=== PATIENT | female | born 1940 ===

== ENCOUNTER 2022-07-10 13:14 | Inpatient (IN) | payer MEDICARE, BC ==
[~2022-07-10] VITALS: Ht 162.6 cm; Wt 63.5 kg
--- NOTE | 2022-07-10 13:18 | NUR ---
ASSUME CARE IN ED VIA RESCUE FROM [facility] FOR Marco ASHLEY 9741.
[2022-07-10] MEDS ORDERED: NIFE-34 PO (14:41)
[2022-07-10] MEDS ORDERED: LOSA100T31 PO (14:41)
[2022-07-10] MEDS ORDERED: CEFTIN PO (14:42)
[2022-07-10] MEDS ORDERED: CHOL500062 PO (14:42)
[2022-07-10] MEDS ORDERED: DIAZ5TAB PO (14:42)
[2022-07-10 15:30] LABS: ETHANOL < 3 MG/DL (0-0)
[2022-07-10 15:31] LABS: HEMATOCRIT 43.2 % (31.2-41.9); MEAN CORPUSCULAR VOLUME 87.3 fL (75.5-95.3); PLATELET COUNT (AUTO) 282 K/uL (179-408)
[2022-07-10 15:32] LABS: POTASSIUM 3.5 mmol/L (3.5-5.1)
[2022-07-10 15:36] LABS: ACETAMINOPHEN < 2.0 ug/mL (10-30)
[2022-07-10 15:37] LABS: BILIRUBIN,TOTAL 0.5 mg/dL (0.2-1.0); TOTAL PROTEIN, SERUM 7.5 g/dL (6.4-8.2)
[2022-07-10 15:39] LABS: THYROID STIMULATING HORMONE 0.969 mIU/mL (0.358-3.740)
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
[2022-07-10] MEDS ORDERED: MAGNESIUM HYDROXIDE 30 ML LIQUID UDC PO PRN (18:30)
[2022-07-10] MEDS ORDERED: ACETAMINOPHEN 325 MG TABLET PO PRN (18:30)
[2022-07-10] MEDS ORDERED: BLOOD SUGAR DIAGNOSTIC 1 EACH STRIP VI ONE (18:30)
[2022-07-10] MEDS ORDERED: MAG HYDROX/AL HYDROX/SIMETH 30 ML LIQUID UDC PO PRN (18:30)
[2022-07-10] MEDS ORDERED: LORAZEPAM 0.5 MG TABLET PO PRN (18:30)
[2022-07-10 19:05] VITALS: BP 154/81
[2022-07-10 20:14] VITALS: BP 149/71
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
[2022-07-11 07:38] VITALS: BP 146/72
[2022-07-11] MEDS ORDERED: DONE5TAB34 PO (12:45)
--- NOTE | 2022-07-11 12:46 | NUR ---
notified Dr. Diallo patient's 72 hrs hold at 2330 pm today.
--- NOTE | 2022-07-11 15:52 | NUR ---
patient is alert and oriented x3 verbalize needs know, patient don't believe she belong here ,asked came to picking table worker her valuable belonging and want to go home with . patient offered $100 for nurse to release her.explain patient about 72 hrs and have to waiting for psychiatrist evaluation .will continue close monitoring.
[2022-07-11 16:07] VITALS: BP 128/69
[2022-07-11] MEDS ORDERED: busPIRone 5 MG TABLET PO ONE (18:15)
[2022-07-11 19:46] VITALS: BP 137/73
[2022-07-11] MEDS: DONEPEZIL 5 MG TABLET PO SCH (20:22)
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
[2022-07-12 07:38] VITALS: BP 148/66
[2022-07-12] MEDS: busPIRone 5 MG TABLET PO SCH ×2 (08:28→16:34)
[2022-07-12] MEDS: CHOLECALCIFEROL 1,000 UNIT TABLET PO SCH (08:29)
[2022-07-12] MEDS: LOSARTAN POTASSIUM 50 MG TABLET PO SCH (08:29)
[2022-07-12 11:28] LABS: *BILIRUBIN,URIN NEGATIVE (NEGATIVE); *BLOOD, URINE NEGATIVE (NEGATIVE); *CLARITY,URINE CLEAR (CLEAR); *COLOR,URINE YELLOW (YELLOW); *KETONES,URINE NEGATIVE (NEGATIVE); *UROBILINOGEN,URINE 0.2 E.U./dl (NORMAL); LEUKOCYTE ESTERASE ,URINE 1+ (NEGATIVE); NITRITE, URINE NEGATIVE (NEGATIVE); PH,URINE 5.5 (5.0-8.0); UGLUCOSE NEGATIVE (NEGATIVE)
[2022-07-12 11:39] LABS: *AMPHETAMINE, URINE NEGATIVE (NEGATIVE); *CANNABINOID, URINE NEGATIVE (NEGATIVE); *COCCAINE, URINE NEGATIVE (NEGATIVE); *OPIATE, URINE NEGATIVE (NEGATIVE); *PHENCYCLIDINE SCREEN,URINE NEGATIVE (NEGATIVE)
[2022-07-12 11:41] LABS: BACTERIA,URINE FEW /HPF (NONE SEEN); RBC,URINE NONE SEEN /HPF (0-3); SQUAMOUS EPITHELIAL CELL,UR FEW /HPF (NONE SEEN)
--- NOTE | 2022-07-12 11:47 | NUR ---
LOVELY Family Contact: Pt currently resides at home with her , Rafi ([phone]) located at [address] [place] [address] ([phone]). Rafi stated to SW that the pt does not have a DPOA or conservator. LOVELY will continue to speak with Rafi to confirm a discharge plan for the pt prior to discharge.
[2022-07-12] MEDS: DIVALPROEX SPRINKLE 125 MG CAP.SPRINK PO SCH ×2 (12:08→20:23)
[2022-07-12] MEDS: CEphaleXIN 500 MG CAPSULE PO SCH ×2 (12:36→21:07)
[2022-07-12] MEDS: NIFEdipine XL 60 MG TABSR PO SCH (14:00)
--- NOTE | 2022-07-12 15:56 | NUR ---
LOVELY Initial Discharge Note: Pt currently resides at home with her , Rafi ([phone]) located at [address] [place] [address] ([phone]). Pt stated she would like to return home. Rafi stated to SW that the pt does not have a DPOA or conservator. LOVELY will continue to work with pt, family and MD to ensure a safe and proper discharge plan.
--- NOTE | 2022-07-12 15:58 | NUR ---
Firearms Report: Test Fixture Assembler completed and submitted a [employer] firearms report for 5150 a danger to others. A copy of report has been placed in patient chart.
[2022-07-12 16:08] VITALS: BP 131/96
--- NOTE | 2022-07-12 17:21 | NUR ---
UA sent to lab ,patient started antibiotic for UTI well tolerated.
[2022-07-12 19:51] VITALS: BP 142/82
[2022-07-12] MEDS: DONEPEZIL 5 MG TABLET PO SCH (20:23)
[2022-07-13 08:51] VITALS: BP 170/74
[2022-07-13] MEDS: CEphaleXIN 500 MG CAPSULE PO SCH ×2 (08:51→16:56)
[2022-07-13] MEDS: busPIRone 5 MG TABLET PO SCH ×3 (08:51→20:33)
[2022-07-13] MEDS: DIVALPROEX SPRINKLE 125 MG CAP.SPRINK PO SCH ×3 (08:51→20:33)
[2022-07-13] MEDS: LOSARTAN POTASSIUM 50 MG TABLET PO SCH (08:51)
[2022-07-13] MEDS: NIFEdipine XL 60 MG TABSR PO SCH (08:52)
[2022-07-13] MEDS: CHOLECALCIFEROL 1,000 UNIT TABLET PO SCH (08:52)
--- NOTE | 2022-07-13 11:42 | NUR ---
LOVELY Family Contact: SW returned pt's , Rafi ([phone]) call and was not able to leave a voicemail for a call back to discuss pt's discharge plan. LOVELY discussed update with Psychiatrist, Dr. Diallo.
--- NOTE | 2022-07-13 16:35 | NUR ---
GPS: PT ALERT AND ORIENTED X3. PT IS CALM AND APPROACHABLE. DENIES PAIN OR DISCOMFORT. PT COMPLIANT TO CARE AND MEDS. NO EPISODE OF AGITATION AT THIS TIME. SEEN ATTENDING WITH GROUP THERAPY. DENIES SI/HI. PT SAFETY AND FALL PRECAUTIONS ARE IN PLACE.
[2022-07-13 17:02] VITALS: BP 101/50
[2022-07-13 20:00] VITALS: BP 101/52
[2022-07-13] MEDS: DONEPEZIL 5 MG TABLET PO SCH (20:33)
--- NOTE | 2022-07-14 05:22 | NUR ---
GPS: Nursing Notes: Dementia. Verbally contracted for safety. Patient still continues to be delusional with paranoid tendencies. Is disheveled, has visual hallucinations, wanders hallway. No aggressive behavior this shift. Patient tremaine SI. Patient taking Kephlex r/t UTI. Is med compliant. Will continue to monitor for safety further hallucinations.
[2022-07-14 07:30] VITALS: BP 113/61
[2022-07-14] MEDS: CHOLECALCIFEROL 1,000 UNIT TABLET PO SCH (09:44)
[2022-07-14] MEDS: LOSARTAN POTASSIUM 50 MG TABLET PO SCH (09:44)
[2022-07-14] MEDS: DIVALPROEX SPRINKLE 125 MG CAP.SPRINK PO SCH ×3 (09:44→20:15)
[2022-07-14] MEDS: busPIRone 5 MG TABLET PO SCH ×3 (09:44→20:15)
[2022-07-14] MEDS: CEphaleXIN 500 MG CAPSULE PO SCH ×2 (09:44→17:44)
[2022-07-14] MEDS: NIFEdipine XL 60 MG TABSR PO SCH (09:45)
--- NOTE | 2022-07-14 10:33 | NUR ---
LOVELY Family Contact: SW contacted pt's , Rafi ([phone]) and was not able to get connected or leave a voicemail. pt stated she also has a daughter. SW was unable to locate daughter's number in patient's chart.
--- NOTE | 2022-07-14 10:35 | NUR ---
GPS: PT ALERT/ORIENTED X3. COMPLIANT WITH CARE AND MEDS. NO AGITATION NOTED. PT PARTICIPATES WITH GROUP ACTIVITIES. PT ATTENDED THE [facility] HEARING AND THE PROBABLE CAUSE REMAINED TO BE DANGER TO OTHERS. PT DID NOT CONTEST TO THE REFEREE.
[2022-07-14 17:11] VITALS: BP 135/53
[2022-07-14 19:50] VITALS: BP 110/63
[2022-07-14] MEDS: DONEPEZIL 5 MG TABLET PO SCH (20:15)
[2022-07-15 07:30] VITALS: BP 122/58
--- NOTE | 2022-07-15 09:45 | NUR ---
LOVELY Family Contact: LOVELY contacted pt's , Rafi ([phone]). LOVELY was not able to get connected or leave a voicemail to discuss pt's discharge plan and to state this com writer would like the pt's daughter's contact information.
[2022-07-15] MEDS: CHOLECALCIFEROL 1,000 UNIT TABLET PO SCH (11:19)
[2022-07-15] MEDS: CEphaleXIN 500 MG CAPSULE PO SCH ×2 (11:20→17:37)
[2022-07-15] MEDS: LOSARTAN POTASSIUM 50 MG TABLET PO SCH (11:20)
[2022-07-15] MEDS: NIFEdipine XL 60 MG TABSR PO SCH (11:20)
[2022-07-15] MEDS: DIVALPROEX SPRINKLE 125 MG CAP.SPRINK PO SCH ×3 (11:22→20:27)
[2022-07-15] MEDS: busPIRone 5 MG TABLET PO SCH ×3 (11:22→20:27)
[2022-07-15 16:00] VITALS: BP 108/49
[2022-07-15] MEDS: TEMAZEPAM 7.5 MG CAPSULE PO PRN (20:27)
[2022-07-15] MEDS: DONEPEZIL 5 MG TABLET PO SCH (20:27)
[2022-07-15 20:28] VITALS: BP 142/53
--- NOTE | 2022-07-16 04:10 | NUR ---
GPS NOTES:Patient received in her room, A&0x2, she is pleasant and compliant with her medications. She slept well during shift. No apparent distress observed. Kept safe at all times.
[2022-07-16 07:30] VITALS: BP 116/53
[2022-07-16 07:57] LABS: HEMATOCRIT 40.4 % (31.2-41.9); MEAN CORPUSCULAR VOLUME 86.1 fL (75.5-95.3); PLATELET COUNT (AUTO) 261 K/uL (179-408)
[2022-07-16 08:08] LABS: BILIRUBIN,TOTAL 0.8 mg/dL (0.2-1.0); CREATININE 0.8 mg/dL (0.6-1.3); POTASSIUM 4.2 mmol/L (3.5-5.1); TOTAL PROTEIN, SERUM 6.9 g/dL (6.4-8.2)
[2022-07-16] MEDS: CHOLECALCIFEROL 1,000 UNIT TABLET PO SCH (08:21)
[2022-07-16] MEDS: LOSARTAN POTASSIUM 50 MG TABLET PO SCH (08:21)
[2022-07-16] MEDS: busPIRone 5 MG TABLET PO SCH ×3 (08:22→20:49)
[2022-07-16] MEDS: CEphaleXIN 500 MG CAPSULE PO SCH ×2 (08:22→17:35)
[2022-07-16] MEDS: DIVALPROEX SPRINKLE 125 MG CAP.SPRINK PO SCH ×3 (08:22→20:49)
[2022-07-16] MEDS: NIFEdipine XL 60 MG TABSR PO SCH (08:23)
--- NOTE | 2022-07-16 14:17 | NUR ---
Patient is isolative, quiet, pleasant, alevism, approachable. A/O X 3 to person, place. Self care. Patient is encourage to verbalize concerns. Fall and safety precautions implemented.
[2022-07-16 20:01] VITALS: BP 142/74
[2022-07-16] MEDS: DONEPEZIL 5 MG TABLET PO SCH (20:49)
--- NOTE | 2022-07-17 05:13 | NUR ---
GPS: Nursing Notes: Confused/Paranoid: Patient is compliant with taking medications and POC. Patient can be a little paranoid at times. Shows unnecessary worry/concern about how her roommate feels. With reassurance and education, patient continues to have less confusion and unnecessary worry. Will continue to mont[place] for safety and compliance.
[2022-07-17 07:52] VITALS: BP 141/68
[2022-07-17] MEDS: CEphaleXIN 500 MG CAPSULE PO SCH (08:38)
[2022-07-17] MEDS: CHOLECALCIFEROL 1,000 UNIT TABLET PO SCH (08:38)
[2022-07-17] MEDS: DIVALPROEX SPRINKLE 125 MG CAP.SPRINK PO SCH ×3 (08:38→20:04)
[2022-07-17] MEDS: busPIRone 5 MG TABLET PO SCH ×3 (08:40→20:04)
[2022-07-17] MEDS: LOSARTAN POTASSIUM 50 MG TABLET PO SCH (08:40)
[2022-07-17] MEDS: NIFEdipine XL 60 MG TABSR PO SCH (08:41)
[2022-07-17 15:05] VITALS: BP 141/68
[2022-07-17 20:00] VITALS: BP 135/62
[2022-07-17] MEDS: DONEPEZIL 5 MG TABLET PO SCH (20:04)
[2022-07-18] MEDS: TEMAZEPAM 7.5 MG CAPSULE PO PRN (02:03)
[2022-07-18 07:30] VITALS: BP 123/66
[2022-07-18] MEDS: LOSARTAN POTASSIUM 50 MG TABLET PO SCH (08:28)
[2022-07-18] MEDS: CHOLECALCIFEROL 1,000 UNIT TABLET PO SCH (08:28)
[2022-07-18] MEDS: DIVALPROEX SPRINKLE 125 MG CAP.SPRINK PO SCH ×3 (08:28→20:30)
[2022-07-18] MEDS: busPIRone 5 MG TABLET PO SCH ×3 (08:29→20:31)
[2022-07-18] MEDS: NIFEdipine XL 60 MG TABSR PO SCH (08:29)
--- NOTE | 2022-07-18 15:31 | NUR ---
Patient is pleasant, sociable, engage in verbal approach, cooperative with care and compliant with medications. A/O X 3 to person, place, environment. Patient is self care. Emotional support provided. Fall and safety precautions implemented.
[2022-07-18 16:00] VITALS: BP 103/58
[2022-07-18 19:58] VITALS: BP 106/50
[2022-07-18] MEDS: DONEPEZIL 5 MG TABLET PO SCH (20:30)
--- NOTE | 2022-07-18 20:45 | NUR ---
GPS: Remains calm,compliant with her plan of care. No aggressive behavior noted. Self-care and goes to the bathroom prn. Safety emphasized. Takes meds.without any problems.
[2022-07-19 07:55] VITALS: BP 128/66
[2022-07-19] MEDS: CHOLECALCIFEROL 1,000 UNIT TABLET PO SCH (08:33)
[2022-07-19] MEDS: NIFEdipine XL 60 MG TABSR PO SCH (08:33)
[2022-07-19] MEDS: busPIRone 5 MG TABLET PO SCH ×3 (08:34→20:34)
[2022-07-19] MEDS: DIVALPROEX SPRINKLE 125 MG CAP.SPRINK PO SCH ×3 (08:34→20:33)
[2022-07-19] MEDS: LOSARTAN POTASSIUM 50 MG TABLET PO SCH (08:34)
--- NOTE | 2022-07-19 09:16 | NUR ---
SW Family Contact: Pt's , Rafi ([phone]) contacted this keno writer and provided this SW with pt's daughters phone number (Vonnie [phone]) as requested by this keno writer. Rafi stated he is capable of taking care of the pt upon discharge at home and stated to this SW that his 2 daughters and son also provide assistance for both of their care.
--- NOTE | 2022-07-19 10:32 | NUR ---
SW Family Contact: Pt's daughter, Vonnie ([phone]) contacted this creative services writer stating her father informed her this creative services writer requested to speak to her regarding pt's discharge plan. Vonnie informed this creative services writer that she is the DPOA of both of her parents and will provide the paperwork today. Vonnie stated she is retired and helps her parents with care a few times a week along with her siblings. Vonnie stated she and her father will provide safe transportation for the pt from [place] [facility] to their home upon discharge.
--- NOTE | 2022-07-19 13:16 | NUR ---
GPS: Nursing Notes: Destructive Behavior To Others: Patient is awake and responding to her name, Alert and oriented x 3, but forgetful at times, cooperative with nursing care, compliant with her medications, participating in therapeutic groups, believes that she is getting better, following staff directions, unable to formulate a viable plan for self care, continue to monitor for safety, no aggressive behavior noted, continue with treatment plan.
[2022-07-19 17:25] VITALS: BP 123/65
[2022-07-19 19:48] VITALS: BP 122/64
[2022-07-19] MEDS: DONEPEZIL 5 MG TABLET PO SCH (20:33)
--- NOTE | 2022-07-20 03:22 | NUR ---
Received patient in her room. Awake and alert. Calm mood and no s/s of delusional thinking. The patient is medication complaint, ate a snack and participated in PM care. Safety Stratiges are in place and continuing to asses patient for paranoia and confusion.
[2022-07-20 07:36] VITALS: BP 115/61
[2022-07-20] MEDS: DIVALPROEX SPRINKLE 125 MG CAP.SPRINK PO SCH ×3 (08:30→20:12)
[2022-07-20] MEDS: CHOLECALCIFEROL 1,000 UNIT TABLET PO SCH (08:31)
[2022-07-20] MEDS: busPIRone 5 MG TABLET PO SCH ×3 (08:31→20:12)
[2022-07-20] MEDS: NIFEdipine XL 60 MG TABSR PO SCH (08:31)
[2022-07-20] MEDS: LOSARTAN POTASSIUM 50 MG TABLET PO SCH (08:32)
--- NOTE | 2022-07-20 12:54 | NUR ---
GPS: Nursing Notes: Destructive Behavior To Others: Patient is awake and responding to her name, cooperative with nursing care, compliant with her medications, A/Ox3, but forgetful, participating in therapeutic groups, no aggressive behavior noted, following staff directions, continue to monitor for safety, unable to formulate a viable plan for self care, continue with treatment plan.
[2022-07-20 15:50] VITALS: BP 125/64
[2022-07-20] MEDS: DONEPEZIL 5 MG TABLET PO SCH (20:12)
[2022-07-20 20:21] VITALS: BP 112/56
[2022-07-20] MEDS: TEMAZEPAM 7.5 MG CAPSULE PO PRN (22:53)
[2022-07-21 07:30] VITALS: BP 107/56
[2022-07-21 07:46] LABS: HEMATOCRIT 39.7 % (31.2-41.9); MEAN CORPUSCULAR HEMOGLOBIN 28.9 uug (24.7-32.8); MEAN CORPUSCULAR VOLUME 86.4 fL (75.5-95.3); PLATELET COUNT (AUTO) 269 K/uL (179-408)
[2022-07-21 07:56] LABS: BILIRUBIN,TOTAL 0.5 mg/dL (0.2-1.0); CREATININE 0.8 mg/dL (0.6-1.3); POTASSIUM 4.3 mmol/L (3.5-5.1); TOTAL PROTEIN, SERUM 6.5 g/dL (6.4-8.2)
[2022-07-21] MEDS: busPIRone 5 MG TABLET PO SCH (08:20)
[2022-07-21] MEDS: CHOLECALCIFEROL 1,000 UNIT TABLET PO SCH (08:21)
[2022-07-21] MEDS: DIVALPROEX SPRINKLE 125 MG CAP.SPRINK PO SCH (08:21)
[2022-07-21] MEDS: LOSARTAN POTASSIUM 50 MG TABLET PO SCH (08:22)
[2022-07-21 08:23] VITALS: BP 107/56
[2022-07-21] MEDS: NIFEdipine XL 60 MG TABSR PO SCH (08:23)
--- NOTE | 2022-07-21 09:47 | NUR ---
LOVELY Discharge Note: Pt will be discharged to Home located at [address] [place] [id number] ([phone]) via pts daughters, Dileep ([phone]) transportation home at 11AM. LOVELY spoke with Vonnie and pts , Rafi ([phone]) who state they are ready to accept the patient home today. Pt is aware and agreeable with discharge plan. Pt is alert and oriented x2, is unable to plan for self-care at this time. However, pt is willing to accept care by her family at home. Pt denies any suicidal or homicidal ideation. Pt will follow-up with [facility] located at [address] [facility] ([phone]). Klarissa ROLAND will help assign pt to her psychiatrist on July 27 at 1:30PM. Pt will follow-up with her Plug Grower, Dr. Kevan Gramajo upon discharge. Pt presents with calm mood and congruent affect. PHARMACY: [facility] located at [address] [id number] ([phone]).
--- NOTE | 2022-07-21 11:58 | NUR ---
Received orders to discharge this patient to Home by 's private transportation. Patient is A/) X 4 to person, place. Patient is cooperative with care, and compliant with medications. Patient was agreeable with discharge plans and signed all discharge documentation. Patient denies SI/HI AH/VH, SOB, pain or any discomfort. Patient left the unit at 11:55 am. Emotional support provided. Fall and safety precautions implemented.
== END 2022-07-21 11:55 | disposition home or self-care (01) | DRG 885 ==
LOC: ER 13:17 → GPS 17:41
PROVIDERS: ADMIT Psychiatry & Neurology Psychosomatic Medicine; ATTEND Registered Nurse
DX: F39 Unspecified mood [affective] disorder (principal); F01.50 Vascular dementia, unspecified severity, without behavioral disturbance, psychotic disturbance, mood disturbance, and anxiety; N39.0 Urinary tract infection, site not specified; E11.40 Type 2 diabetes mellitus with diabetic neuropathy, unspecified; E78.5 Hyperlipidemia, unspecified; F03.90 Unspecified dementia, unspecified severity, without behavioral disturbance, psychotic disturbance, mood disturbance, and anxiety; I10 Essential (primary) hypertension; K44.9 Diaphragmatic hernia without obstruction or gangrene; K21.9 Gastro-esophageal reflux disease without esophagitis; M54.12 Radiculopathy, cervical region; B96.1 Klebsiella pneumoniae [K. pneumoniae] as the cause of diseases classified elsewhere; F29 Unspecified psychosis not due to a substance or known physiological condition; M54.30 Sciatica, unspecified side; F41.9 Anxiety disorder, unspecified; F31.9 Bipolar disorder, unspecified
CPT/HCPCS: 36415; 70450; 71045; 80164; 83605; 84443; 84484; 85025; 87077; 87086; A4663; G0480